=== PATIENT | male | born 1975 | race Two or more races ===

== ENCOUNTER 2018-03-20 13:57 | Emergency (ER) | payer OTHER ==
[~2018-03-20] VITALS: Ht 157.5 cm; Wt 70.3 kg
[2018-03-20 14:01] VITALS: BP 149/88
[2018-03-20] MEDS ORDERED: ACETAMINOPHEN 325 MG TABLET ONE (14:35)
[2018-03-20] MEDS: ACETAMINOPHEN 325 MG TABLET PO ONE (14:37)
--- NOTE | 2018-03-20 15:50 | NUR ---
EYE ASSESSMENT DONE, RESULT TO PIETRO DOWNING.
== END 2018-03-20 16:56 | disposition home or self-care (01) ==
LOC: ER 14:01
DX: S02.82XA Fracture of other specified skull and facial bones, left side, initial encounter for closed fracture (principal); S00.212A Abrasion of left eyelid and periocular area, initial encounter; S09.8XXA Other specified injuries of head, initial encounter; H11.32 Conjunctival hemorrhage, left eye; Y04.0XXA Assault by unarmed brawl or fight, initial encounter; Y93.89 Activity, other specified; Y92.521 Bus station as the place of occurrence of the external cause; Y99.8 Other external cause status
CPT/HCPCS: 70486-TC; A4606; A6402; Z7610